=== PATIENT | female | born 1995 | race Caucasian/White ===

== ENCOUNTER 2019-02-12 14:47 | Emergency (ER) | payer SELFPAY ==
[2019-02-12 15:39] VITALS: BP 121/78; PULSE 104; RESP 18; TEMP 37.1; O2SAT 98; BMI 27.4
[2019-02-12] MEDS: SODIUM CHLORIDE 0.9% 1,000 ML 1000 ML IV (18:14)
[2019-02-12] MEDS: KETOROLAC 60 MG/2 ML VIAL 30 MG IV (18:14)
[2019-02-12 18:24] VITALS: BP 111/80; PULSE 67; RESP 16; O2SAT 99
[2019-02-12 19:30] VITALS: BP 116/81; PULSE 78; RESP 16; O2SAT 96
--- NOTE | 2019-02-13 01:59 | ED.HA ---
HPI - Headache <JERRY Samuels - Last Filed: 02/13/19 02:14> General Chief Complaint: Headache Stated Complaint: 5 day dizzy spell, migraine, impaired vision rt Time Seen by Provider: 02/12/19 17:31 Source: patient Mode of arrival: ambulatory Limitations: no limitations History of Present Illness HPI Narrative: This is a 23 year pleasant female, nonsmoker, who presents with a friend with a chief complain of her ocular migraine headache which is lasting for last 5 days. Usually her migraine headache does not last this long and reports tired of the headache. 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 She has a neurologist back at home, Dr. Dennis and she was instructed to hydrate herself adequately, rest, and use compression stockings due to her low blood pressure. She takes Excedrin ebvx-rhk-[id number] medications for her headaches. She reports her headache is in all over including frontal and posterior region of her head. She reports associated symptoms such as photophobia and dizziness. At times she reports her rise eye vision gets blurred and decreased from the migraine headaches. She denies being excessively stressed at this time. She denies fever, chills, nausea, vomiting. She is planning to go back home in March. Her last LMP was last week and reports no chance of being . Related Data Home Medications Medication Instructions Recorded Confirmed amitriptyline 10 mg PO BEDTIME 02/12/19 02/12/19 pytmtje-spsjdpfgzznde-bwqpmxhd 1 tab PO PRN PRN 02/12/19 02/12/19 [Excedrin Migraine] coenzyme Q10 [CoQ-10] 100 mg PO TID 02/12/19 02/12/19 ferrous sulfate 325 mg PO DAILY 02/12/19 02/12/19 magnesium oxide 400 mg PO BID 02/12/19 02/12/19 melatonin 3 mg PO BEDTIME PRN 02/12/19 02/12/19 riboflavin (vitamin B2) 400 mg PO DAILY 02/12/19 02/12/19 Allergies Allergy/AdvReac Type Severity Reaction Status Date / Time Latex, Natural Rubber Allergy Verified 02/12/19 15:39 Review of Systems <JERRY Samuels - Last Filed: 02/13/19 02:14> Review of Systems General: See HPI HEENT: Denies sinus pain, ear pain, sore throat, difficulty swallowing. Reports dizziness. Respiratory: Denies dyspnea, cough, wheezing, hemoptysis, sputum. Cardiovascular: Denies chest pain, palpitations, orthopnea, edema. Gastrointestinal: Denies nausea, vomiting, abdominal pain, diarrhea, constipation, melena. : Denies dysuria, frequency, incontinence, hematuria, urinary retention. Musculoskeletal: Denies weakness, joint pain or bony pain. Skin: Denies rash, skin lesions, or other. Neurologic: See HPI. Denies weakness, numbness, change in speech, confusion, seizures, incoordination. Psychiatric: No concerning psychosocial issues. 12-point review of systems is negative except for those stated above. PFSH <JERRY Samuels - Last Filed: 02/13/19 02:14> Medical History (Updated 02/13/19 @ 02:06 by JERRY Samuels) Migraine headache (Acute) Social History Smoking Status: Never smoker Social History Smoking Status: Never smoker Exam <JERRY Samuels - Last Filed: 02/13/19 02:14> Narrative Exam Narrative: GEN: Alert, oriented x 3, well appearing and nourished, and in no acute distress. Smiling and conversing well with her friend at the bedside. Head: Normal cephalic, atraumatic. No scalp or temporal tenderness, palpable mass or rash. EYES: Pupils are equal, round, and reactive to light and accommodation. Extraocular muscles are intact bilaterally. There is no subconjunctival hemorrhage, exudate and sclera non-icteric. ENT: Bilateral auditory canals and tympanic membranes. Hearing grossly intact. Nose without bleeding, purulent discharge, septal hematoma or deviation. Turbinate with erythema and swelling on L nare. Facial sinuses nontender to palpate. Mucous membrane moist, no mucosal lesion. Throat without erythema, tonsillar hypertrophy or exudate. Uvula in midline, airway patent. Neck: Trachea in midline. No JVD, non-tender without lymphadenopathy. No masses or thyroid megaly. Supple, non-tender and no meningeal signs. CARDIAC: Normal regular rate and rhythm without murmurs, gallops, or rubs. No chest wall tenderness. No peripheral edema, cyanosis or pallor. Capillary refill is less than 2 seconds. RESPIRATORY: Lungs are cleat to auscultate bilaterally. No cough, wheezes, rales, or rhonchi. No stridor, respiratory distress, increase work of breathing, or accessary muscle used. ABD: Abdomen soft, nontender and non-distended. No guarding or rebound tenderness to palpate. Bowel sounds are normal in all 4 quadrants. There is no palpable masses or organomegaly. EXT: Full painless ROM of all extremities with no loss of sensation, strength, effusion or edema. SKIN: Warm, dry, normal color for patient. No erythema, lesions or rash. BACK: Nontender without deformity or crepitance. No flank tenderness. NEUROLOGICAL: Alert and oriented to place, time and person. Sensation and motor function intact bilaterally. No facial droops, dysphasia. PSYCHIATRIC: Good judgement and reason, without hallucinations, abnormal affect or abnormal behaviors during the examination. Initial Vital Signs Initial Vital Signs: Vital Signs Temperature 98.8 F 02/12/19 15:39 Pulse Rate 104 H 02/12/19 15:39 Respiratory Rate 18 02/12/19 15:39 Blood Pressure 121/78 02/12/19 15:39 Pulse Oximetry 98 02/12/19 15:39 <Emil Delgadillo DO - Last Filed: 02/13/19 04:23> Initial Vital Signs Initial Vital Signs: Vital Signs Temperature 98.8 F 02/12/19 15:39 Pulse Rate 104 H 02/12/19 15:39 Respiratory Rate 18 02/12/19 15:39 Blood Pressure 121/78 02/12/19 15:39 Pulse Oximetry 98 02/12/19 15:39 Course <JERRY Samuels - Last Filed: 02/13/19 02:14> Orders Ordered: Discontinued Medications Sodium Chloride (Normal Saline 0.9%) 1,000 mls @ 1,000 mls/hr IV BOLUS ONE Stop: 02/12/19 18:51 Last Infusion: 02/12/19 19:34 Dose: 0 mls/hr Admin: 02/12/19 18:14 Dose: 1,000 mls/hr Ketorolac Tromethamine (Toradol) 30 mg IV NOW ONE Stop: 02/12/19 17:53 Last Admin: 02/12/19 18:14 Dose: 30 mg Vital Signs - 8 hr 02/12/19 18:24 02/12/19 19:30 Pulse Rate 67 78 Respiratory Rate 16 16 Blood Pressure [Left Arm] 111/80 116/81 Pulse Oximetry 99 96 <Emil Delgadillo DO - Last Filed: 02/13/19 04:23> Orders Ordered: Discontinued Medications Sodium Chloride (Normal Saline 0.9%) 1,000 mls @ 1,000 mls/hr IV BOLUS ONE Stop: 02/12/19 18:51 Last Infusion: 02/12/19 19:34 Dose: 0 mls/hr Admin: 02/12/19 18:14 Dose: 1,000 mls/hr Ketorolac Tromethamine (Toradol) 30 mg IV NOW ONE Stop: 02/12/19 17:53 Last Admin: 02/12/19 18:14 Dose: 30 mg Vital Signs - 8 hr 02/12/19 18:24 02/12/19 19:30 Pulse Rate 67 78 Respiratory Rate 16 16 Blood Pressure [Left Arm] 111/80 116/81 Pulse Oximetry 99 96 MDM - Headache <JERRY Samuels - Last Filed: 02/13/19 02:14> Differential Diagnosis Differential diagnosis: Likely migraine, headache and sinusitis Medical Records Attestation: I reviewed the patient's medical records. Lab Data Attestation: I reviewed the patient's lab results. Point of Care Testing Test Results Negative MDM Narrative Medical decision making narrative: This is a pleasant 23-year-old female presents with her usual migraine headache for last 5 days. She reports the headache usually does not last this long and her home medication Excedrin has not been helpful this time. The patient was alert, oriented, in no acute distress. She denies fever, chills, nausea, vomiting. She reports some photophobia. The patient was medicated with IV Toradol 30 mg with normal saline 1 L. The patient felt improved after this medication. The patient was advised to follow up with her neurologist when she returns to [place] and referral to walk-in clinic has been provided. Return precautions were discussed with the patient. Patient has no questions at this time and agrees with treatment plan of continue taking Excedrin or changed to OTC Tylenol and or ibuprofen. <Emil Delgadillo DO - Last Filed: 02/13/19 04:23> Lab Data Point of Care Testing Test Results Negative Discharge Plan Departure Patient Disposition: Home Clinical Impression: Headache Qualifiers: Headache type: unspecified Headache chronicity pattern: unspecified pattern Intractability: not intractable Qualified Code(s): R51 - Headache Discharge Date/Time: 02/12/19 20:11 Interventions: ED Discharge Assessment Last Done: 02/12/19 20:10 Instructions: DI for Headache Activity Restrictions/Additional Instructions: You have been diagnosed with [ headache. He had been treated with IV fluid and injection form of ibuprofen/Motrin which helped with her headache]. What to do: *Take your medications as directed. It could continue to use Excedrin headache medication, or [id number]-[id number] Tylenol and or Motrin as needed. Please follow direction on the bottle. *Follow up with your primary care provider in 2-3 days, call for an appointment. Let them know you were seen in the ED and that we asked you to be seen in follow up. *Return to ED if you have any new, worsening, or concerning symptoms, such as [worsening headache, fainting episode, unable to tolerate fluid, vision change, chest pain, breathing difficulty, any acute concerns]. 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 Prescriptions: No Action melatonin 3 mg Tablet 3 mg PO BEDTIME PRN (Reason: Sleep) RF: 0 amitriptyline 10 mg Tablet 10 mg PO BEDTIME RF: 0 ferrous sulfate 325 mg (65 mg iron) Tablet 325 mg PO DAILY RF: 0 Excedrin Migraine 250-250-65 mg Tablet 1 tab PO PRN PRN (Reason: Headache) RF: 0 coenzyme Q10 [CoQ-10] 100 mg Capsule 100 mg PO TID RF: 0 riboflavin (vitamin B2) 400 mg Tablet 400 mg PO DAILY RF: 0 magnesium oxide 400 mg magnesium Tablet 400 mg PO BID RF: 0 Referrals: [facility] [Outside] (Walk-In clinic if you need care while you are in town) <Emil Delgadillo DO - Last Filed: 02/13/19 04:23> Cosign ED Attending Cosignature Attestation: I was immediately available in the department for consultation. Documentation has been reviewed. I agree with assessment and plan.
--- NOTE | 2019-02-13 02:15 | ED_ITS ---
HPI - Headache <JERRY Samuels - Last Filed: 02/13/19 02:14> General Chief Complaint: Headache Stated Complaint: 5 day dizzy spell, migraine, impaired vision rt Time Seen by Provider: 02/12/19 17:31 Source: patient Mode of arrival: ambulatory Limitations: no limitations History of Present Illness HPI Narrative: This is a 23 year pleasant female, nonsmoker, who presents with a friend with a chief complain of her ocular migraine headache which is lasting for last 5 days. Usually her migraine headache does not last this long and reports tired of the headache. 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 She has a neurologist back at home, Dr. Dennis and she was instructed to hydrate herself adequately, rest, and use compression stockings due to her low blood pressure. She takes Excedrin yhrq-tpr-[id number] medications for her headaches. She reports her headache is in all over including frontal and posterior region of her head. She reports associated symptoms such as photophobia and dizziness. At times she reports her rise eye vision gets blurred and decreased from the migraine headaches. She denies being excessively stressed at this time. She denies fever, chills, nausea, vomiting. She is planning to go back home in March. Her last LMP was last week and reports no chance of being . Related Data Home Medications Medication Instructions Recorded Confirmed amitriptyline 10 mg PO BEDTIME 02/12/19 02/12/19 aovsclh-hkszjdpuceezp-ntowmspp 1 tab PO PRN PRN 02/12/19 02/12/19 [Excedrin Migraine] coenzyme Q10 [CoQ-10] 100 mg PO TID 02/12/19 02/12/19 ferrous sulfate 325 mg PO DAILY 02/12/19 02/12/19 magnesium oxide 400 mg PO BID 02/12/19 02/12/19 melatonin 3 mg PO BEDTIME PRN 02/12/19 02/12/19 riboflavin (vitamin B2) 400 mg PO DAILY 02/12/19 02/12/19 Allergies Allergy/AdvReac Type Severity Reaction Status Date / Time Latex, Natural Rubber Allergy Verified 02/12/19 15:39 Review of Systems <JERRY Samuels - Last Filed: 02/13/19 02:14> Review of Systems General: See HPI HEENT: Denies sinus pain, ear pain, sore throat, difficulty swallowing. Reports dizziness. Respiratory: Denies dyspnea, cough, wheezing, hemoptysis, sputum. Cardiovascular: Denies chest pain, palpitations, orthopnea, edema. Gastrointestinal: Denies nausea, vomiting, abdominal pain, diarrhea, consti pation, melena. : Denies dysuria, frequency, incontinence, hematuria, urinary retention. Musculoskeletal: Denies weakness, joint pain or bony pain. Skin: Denies rash, skin lesions, or other. Neurologic: See HPI. Denies weakness, numbness, change in speech, confusion, seizures, incoordination. Psychiatric: No concerning psychosocial issues. 12-point review of systems is negative except for those stated above. PFSH <JERRY Samuels - Last Filed: 02/13/19 02:14> Medical History (Updated 02/13/19 @ 02:06 by JERRY Samuels) Migraine headache (Acute) Social History Smoking Status: Never smoker Social History Smoking Status: Never smoker Exam <JERRY Samuels - Last Filed: 02/13/19 02:14> Narrative Exam Narrative: GEN: Alert, oriented x 3, well appearing and nourished, and in no acute distress. Smiling and conversing well with her friend at the bedside. Head: Normal cephalic, atraumatic. No scalp or temporal tenderness, palpable mass or rash. EYES: Pupils are equal, round, and reactive to light and accommodation. Extraocular muscles are intact bilaterally. There is no subconjunctival hemorrhage, exudate and sclera non-icteric. ENT: Bilateral auditory canals and tympanic membranes. Hearing grossly intact. Nose without bleeding, purulent discharge, septal hematoma or deviation. Turbinate with erythema and swelling on L nare. Facial sinuses nontender to palpate. Mucous membrane moist, no mucosal lesion. Throat without erythema, tonsillar hypertrophy or exudate. Uvula in midline, airway patent. Neck: Trachea in midline. No JVD, non-tender without lymphadenopathy. No masses or thyroid megaly. Supple, non-tender and no meningeal signs. CARDIAC: Normal regular rate and rhythm without murmurs, gallops, or rubs. No chest wall tenderness. No peripheral edema, cyanosis or pallor. Capillary refill is less than 2 seconds. RESPIRATORY: Lungs are cleat to auscultate bilaterally. No cough, wheezes, rales, or rhonchi. No stridor, respiratory distress, increase work of breathing, or accessary muscle used. ABD: Abdomen soft, nontender and non-distended. No guarding or rebound tenderness to palpate. Bowel sounds are normal in all 4 quadrants. There is no palpable masses or organomegaly. EXT: Full painless ROM of all extremities with no loss of sensation, strength, effusion or edema. SKIN: Warm, dry, normal color for patient. No erythema, lesions or rash. BACK: Nontender without deformity or crepitance. No flank tenderness. NEUROLOGICAL: Alert and oriented to place, time and person. Sensation and motor function intact bilaterally. No facial droops, dysphasia. PSYCHIATRIC: Good judgement and reason, without hallucinations, abnormal affect or abnormal behaviors during the examination. Initial Vital Signs Initial Vital Signs: Vital Signs Temperature 98.8 F 02/12/19 15:39 Pulse Rate 104 H 02/12/19 15:39 Respiratory Rate 18 02/12/19 15:39 Blood Pressure 121/78 02/12/19 15:39 Pulse Oximetry 98 02/12/19 15:39 <Emil Delgadillo DO - Last Filed: 02/13/19 04:23> Initial Vital Signs Initial Vital Signs: Vital Signs Temperature 98.8 F 02/12/19 15:39 Pulse Rate 104 H 02/12/19 15:39 Respiratory Rate 18 02/12/19 15:39 Blood Pressure 121/78 02/12/19 15:39 Pulse Oximetry 98 02/12/19 15:39 Course <JERRY Samuels - Last Filed: 02/13/19 02:14> Orders Ordered: Discontinued Medications Sodium Chloride (Normal Saline 0.9%) 1,000 mls @ 1,000 mls/hr IV BOLUS ONE Stop: 02/12/19 18:51 Last Infusion: 02/12/19 19:34 Dose: 0 mls/hr Admin: 02/12/19 18:14 Dose: 1,000 mls/hr Ketorolac Tromethamine (Toradol) 30 mg IV NOW ONE Stop: 02/12/19 17:53 Last Admin: 02/12/19 18:14 Dose: 30 mg Vital Signs - 8 hr 02/12/19 18:24 02/12/19 19:30 Pulse Rate 67 78 Respiratory Rate 16 16 Blood Pressure [Left Arm] 111/80 116/81 Pulse Oximetry 99 96 <Emil Delgadillo DO - Last Filed: 02/13/19 04:23> Orders Ordered: Discontinued Medications Sodium Chloride (Normal Saline 0.9%) 1,000 mls @ 1,000 mls/hr IV BOLUS ONE Stop: 02/12/19 18:51 Last Infusion: 02/12/19 19:34 Dose: 0 mls/hr Admin: 02/12/19 18:14 Dose: 1,000 mls/hr Ketorolac Tromethamine (Toradol) 30 mg IV NOW ONE Stop: 02/12/19 17:53 Last Admin: 02/12/19 18:14 Dose: 30 mg Vital Signs - 8 hr 02/12/19 18:24 02/12/19 19:30 Pulse Rate 67 78 Respiratory Rate 16 16 Blood Pressure [Left Arm] 111/80 116/81 Pulse Oximetry 99 96 MDM - Headache <JERRY Samuels - Last Filed: 02/13/19 02:14> Differential Diagnosis Differential diagnosis: Likely migraine, headache and sinusitis Medical Records Attestation: I reviewed the patient's medical records. Lab Data Attestation: I reviewed the patient's lab results. Point of Care Testing Test Results Negative MDM Narrative Medical decision making narrative: This is a pleasant 23-year-old female presents with her usual migraine headache for last 5 days. She reports the headache usually does not last this long and her home medication Excedrin has not been helpful this time. The patient was alert, oriented, in no acute distress. She denies fever, chills, nausea, vomiting. She reports some photophobia. The patient was medicated with IV Toradol 30 mg with normal saline 1 L. The patient felt improved after this medication. The patient was advised to follow up with her neurologist when she returns to [place] and referral to walk-in clinic has been provided. Return precautions were discussed with the patient. Patient has no questions at this time and agrees with treatment plan of continue taking Excedrin or changed to OTC Tylenol and or ibuprofen. <Emil Delgadillo DO - Last Filed: 02/13/19 04:23> Lab Data Point of Care Testing Test Results Negative Discharge Plan Departure Patient Disposition: Home Clinical Impression: Headache Qualifiers: Headache type: unspecified Headache chronicity pattern: unspecified pattern Intractability: not intractable Qualified Code(s): R51 - Headache Discharge Date/Time: 02/12/19 20:11 Interventions: ED Discharge Assessment Last Done: 02/12/19 20:10 Instructions: DI for Headache Activity Restrictions/Additional Instructions: You have been diagnosed with [ headache. He had been treated with IV fluid and injection form of ibuprofen/Motrin which helped with her headache]. What to do: *Take your medications as directed. It could continue to use Excedrin headache medication, or qiqp-[id number]-lgickon Tylenol and or Motrin as needed. Please follow direction on the bottle. *Follow up with your primary care provider in 2-3 days, call for an appointment. Let them know you were seen in the ED and that we asked you to be seen in follow up. *Return to ED if you have any new, worsening, or concerning symptoms, such as [worsening headache, fainting episode, unable to tolerate fluid, vision change, chest pain, breathing difficulty, any acute concerns]. 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 Prescriptions: No Action melatonin 3 mg Tablet 3 mg PO BEDTIME PRN (Reason: Sleep) RF: 0 amitriptyline 10 mg Tablet 10 mg PO BEDTIME RF: 0 ferrous sulfate 325 mg (65 mg iron) Tablet 325 mg PO DAILY RF: 0 Excedrin Migraine 250-250-65 mg Tablet 1 tab PO PRN PRN (Reason: Headache) RF: 0 coenzyme Q10 [CoQ-10] 100 mg Capsule 100 mg PO TID RF: 0 riboflavin (vitamin B2) 400 mg Tablet 400 mg PO DAILY RF: 0 magnesium oxide 400 mg magnesium Tablet 400 mg PO BID RF: 0 Referrals: [facility] [Outside] (Walk-In clinic if you need care while you are in town) <Emil Delgadillo DO - Last Filed: 02/13/19 04:23> Cosign ED Attending Cosignature Attestation: I was immediately available in the department for consultation. Documentation has been reviewed. I agree with assessment and plan.
== END 2019-02-12 20:11 | disposition home or self-care (01) ==
PROVIDERS: Emergency Provider Nurse Practitioner Family
DX: R51 Headache (principal)
CPT/HCPCS: 36591; 81025; 96361; 96374; 99283; 99284; J1885